=== PATIENT | female | born 1970 | race African-American/Black ===

== ENCOUNTER 2017-11-06 01:38 | Emergency (ER) | payer OTHER ==
[2017-11-06 02:10] VITALS: BMI 33.5
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
[2017-11-06] MEDS ORDERED: SODIUM CHLORIDE 0.9% 500 ML INFUS.BAG IV ONE (02:31)
[2017-11-06] MEDS ORDERED: NALOXONE HCL 0.4 MG/ML VIAL IVPUSH ONE (03:07)
[2017-11-06 03:13] LABS: BASO % 0.4 % (0-2.0); EOS % 0.2 % (0-4.5); HEMATOCRIT 32.7 % (32.4-45.2); LYMPH % 5.4 % (8-40); MCH 29.8 pg (25.7-33.7); MCHC 33.7 g/dl (32.0-36.0); MEAN CELL VOLUME 88.5 fl (80-96); MEAN PLT VOLUME 8.1 fl (7.5-11.1); MONO % 8.6 % (3.8-10.2); NEUT % 85.4 % (42.8-82.8); PLATELET COUNT 197 K/MM3 (134-434); RBC 3.69 M/mm3 (3.60-5.2); RDW 14.9 % (11.6-15.6)
[2017-11-06] MEDS ORDERED: NALOXONE HCL 0.4 MG/ML VIAL ONE ×2 (03:17→03:31)
[2017-11-06 03:44] LABS: COCAINE, UR NEGATIVE ng/ml (CUTOFF=300); METHADONE, UR NEGATIVE ng/ml (CUTOFF=300); OPIATES, URI NEGATIVE ng/ml (CUTOFF=300); PHENCYCLIDINE,URINE NEGATIVE ng/ml (CUTOFF=25); URINE AMPHETAMINES NEGATIVE ng/ml (CUTOFF=500); URINE BARBITURATES NEGATIVE ng/ml (CUTOFF=200); URINE BENZODIAZEPINES NEGATIVE ng/ml (CUTOFF=200)
[2017-11-06 03:45] LABS: ALBUMIN 3.3 g/dl (3.4-5.0); ANION GAP 8 (8-16); BILIRUBIN,TOTAL 0.2 mg/dL (0.2-1.0); BLOOD UREA NITROGEN 19 mg/dL (7-18); CALCIUM 8.3 mg/dL (8.5-10.1); CHLORIDE 107 mmol/L (98-107); CO2 26 mmol/L (21-32); CREATININE 2.1 mg/dL (0.55-1.02); GLUCOSE,RANDOM 124 mg/dL (74-106); POTASSIUM 3.7 mmol/L (3.5-5.1); SGOT/AST 37 U/L (15-37); SGPT/ALT 24 U/L (12-78); SODIUM 141 mmol/L (136-145); TOT PROT 6.5 g/dl (6.4-8.2)
[2017-11-06 03:46] LABS: ALK PHOS 52 U/L (45-117)
[2017-11-06 03:49] LABS: ACETAMINOPHEN < 2.000 ug/mL; SALICYLATE 5.573 mg/dL
[2017-11-06 06:23] VITALS: PULSE 78
[2017-11-06 08:28] LABS: ANION GAP 4 (8-16); BLOOD UREA NITROGEN 20 mg/dL (7-18); CALCIUM 8.2 mg/dL (8.5-10.1); CHLORIDE 109 mmol/L (98-107); CO2 29 mmol/L (21-32); CREATININE 1.6 mg/dL (0.55-1.02); GLUCOSE,RANDOM 83 mg/dL (74-106); POTASSIUM 3.8 mmol/L (3.5-5.1); SODIUM 142 mmol/L (136-145)
--- NOTE | 2017-11-06 08:58 | PDOC ---
*Physical Exam - Vital Signs Last Vital Signs Temp Pulse Resp BP Pulse Ox 98.7 F 78 15 130/80 99 11/06/17 03:45 11/06/17 06:23 11/06/17 06:23 11/06/17 06:23 11/06/17 07:15 ED Treatment Course - LABORATORY CBC & Chemistry Diagram: 11/06/17 03:03 11/06/17 07:51 - ADDITIONAL ORDERS Additional order review: Laboratory Results 11/06/17 11/06/17 11/06/17 07:51 03:20 03:03 WBC RBC Hgb Hct MCV MCH MCHC RDW Plt Count MPV Neutrophils % Lymphocytes % Monocytes % Eosinophils % Basophils % Sodium 142 141 Potassium 3.8 3.7 Chloride 109 H 107 Carbon Dioxide 29 26 Anion Gap 4 L 8 BUN 20 H 19 H Creatinine 1.6 H 2.1 H Creat Clearance w eGFR 25.35 Random Glucose 83 124 H Calcium 8.2 L 8.3 L Total Bilirubin 0.2 D AST 37 ALT 24 Alkaline Phosphatase 52 Total Protein 6.5 Albumin 3.3 L Beta HCG, Quant Salicylates Opiates Screen Negative Methadone Screen Negative Acetaminophen Barbiturate Screen Negative Phencyclidine Screen Negative Ur Amphetamines Screen Negative MDMA (Ecstasy) Screen Negative Benzodiazepines Screen Negative Cocaine Screen Negative U Marijuana (THC) Screen Positive Alcohol, Quantitative 11/06/17 11/06/17 03:03 03:03 WBC 12.0 H D RBC 3.69 Hgb 11.0 D Hct 32.7 MCV 88.5 MCH 29.8 MCHC 33.7 RDW 14.9 Plt Count 197 MPV 8.1 Neutrophils % 85.4 H Lymphocytes % 5.4 L D Monocytes % 8.6 D Eosinophils % 0.2 D Basophils % 0.4 Sodium Potassium Chloride Carbon Dioxide Anion Gap BUN Creatinine Creat Clearance w eGFR Random Glucose Calcium Total Bilirubin AST ALT Alkaline Phosphatase Total Protein Albumin Beta HCG, Quant < 1.0 Salicylates 5.573 Opiates Screen Methadone Screen Acetaminophen < 2.000 Barbiturate Screen Phencyclidine Screen Ur Amphetamines Screen MDMA (Ecstasy) Screen Benzodiazepines Screen Cocaine Screen U Marijuana (THC) Screen Alcohol, Quantitative < 5.0 11/06/17 03:03 RBC 3.69 MCV 88.5 MCHC 33.7 RDW 14.9 MPV 8.1 Neutrophils % 85.4 H Lymphocytes % 5.4 L D Monocytes % 8.6 D Eosinophils % 0.2 D Basophils % 0.4 - Medications Given in the ED: ED Medications Discontinued Medications Generic Name Dose Route Start Last Admin Trade Name Geovany PRN Reason Stop Dose Admin Naloxone HCl 0.8 mg 11/06/17 03:07 11/06/17 03:08 Narcan - IVPUSH 11/06/17 03:08 0.8 mg ONCE ONE Administration Sodium Chloride 1,000 ml 11/06/17 02:31 11/06/17 03:08 Normal Saline - IV 11/06/17 02:32 1,000 ml ONCE ONE Administration Medical Decision Making - Medical Decision Making 11/06/17 08:57 I received this patient on sign out at 7 am She was brought in to the ER for evaluation of alterations in mental status Overnight she was given Narcan 0.8mg total with a reported improvement in her blood pressure She was given 2 L NS Plan was to consult psychiatry as pt has a history of depression She voices no suicidal or homicidal ideation to me Pt does not admit to overdosing to me 11/06/17 08:59 Laboratory Tests 11/16/15 11/06/17 11/06/17 18:00 03:03 07:51 BUN 11 19 H 20 H Creatinine 1.1 H 2.1 H 1.6 H Renal insufficiency improved with hydration Awaiting call back from Dr Galvez 11/06/17 09:26 Pt upon re assessment states she did not intend to harm herself She took her standard medications last night and snorted heroin prior to going to bed Upon re assessment, pt BP 89/[address] Gill for admission UA negative Head CT negative CXR negative Repeat blood pressure 101/70 Pt ambulatory to my desk She states that she has already called her to bring her home Pt does not want to stay in the hospital Pt asked to hold Lisinopril Clinical impression: Heroin use, initial presentation renal insufficiency, initial presentation Dehydration, initial presentation *DC/Admit/Observation/Transfer Diagnosis at time of Disposition: Renal insufficiency, Dehydration, Heroin abuse - Discharge Dispostion Disposition: HOME Condition at time of disposition: Stable Admit: No - Referrals Referrals: ON STAFF,NOT [Primary Care Provider] - - Patient Instructions Printed Discharge Instructions: DI for Dehydration -- Adult, Kidney Failure Additional Instructions: PLEASE DO NOT TAKE YOUR BLOOD PRESSURE MEDICATION TODAY PLEASE TAKE YOUR PSYCHIATRIC MEDICATIONS PRESCRIBED RETURN TO THE ER FOR ANY OTHER CONCERNS OR COMPLAINTS - Post Discharge Activity
[2017-11-06] MEDS ORDERED: SODIUM CHLORIDE 1,000 ML IV STA (09:25)
[2017-11-06 09:35] VITALS: TEMP 98
[2017-11-06 11:01] VITALS: BP 111/62
--- NOTE | 2017-11-06 11:05 | EKG ---
Test Reason : Blood Pressure : / mmHG Vent. Rate : 079 BPM Atrial Rate : 079 BPM P-R Int : 148 ms QRS Dur : 086 ms QT Int : 540 ms P-R-T Axes : 065 067 -52 degrees QTc Int : 619 ms NORMAL SINUS RHYTHM T WAVE ABNORMALITY, CONSIDER INFERIOR ISCHEMIA T WAVE ABNORMALITY, CONSIDER ANTEROLATERAL ISCHEMIA PROLONGED QT ABNORMAL ECG NO PREVIOUS ECGS AVAILABLE Confirmed by KARLA MURILLO MD ([id number]) on 11/06/2017 11:04:48 AM Referred By: Confirmed By:KARLA MURILLO MD
== END 2017-11-06 11:00 | disposition home or self-care (01) ==
LOC: SUPCPDRO 01:38 → JER 01:38
PROC: 3E033GC Introduction of Other Therapeutic Substance into Peripheral Vein, Percutaneous Approach (ICD-10-PCS; principal; 2017-11-06)
DX: F11.10 Opioid abuse, uncomplicated (principal); E86.0 Dehydration; N28.9 Disorder of kidney and ureter, unspecified; F17.210 Nicotine dependence, cigarettes, uncomplicated; I10 Essential (primary) hypertension; F32.9 Major depressive disorder, single episode, unspecified
CPT/HCPCS: 36415; 70450-TC; 71045-TC-FY; 80048; 80053; 80307; 84702; 85025; 93005; 93010; 96374; 99285-25

== ENCOUNTER 2018-07-30 11:29 | Inpatient (IN) | payer OTHER ==
[2018-07-30 12:13] VITALS: BMI 26.1
--- NOTE | 2018-07-30 14:25 | HP ---
COWS - Scale Resting Pulse: 0= MD 80 or Below Sweatin= Chills/Flushing Restless Observation: 1= Difficult to Sit Still Pupil Size: 0= Normal to Room Light Bone or Joint Aches: 2= Severe Diffuse Aches Runny Nose/ Eye Tearin= Runny Nose/Eyes GI Upset > 30mins: 3= Vomiting/Diarrhea Tremor Observation: 1= Tremor [place], Not Seen Yawning Observation: 1= 1-2x During Session Anxiety or Irritability: 1=Feels Anxious/Irritable Goose Flesh Skin: 3=Piloerection COWS Score: 15 CIWA Score - Admission Criteria [facility] Guidelines: Admission for Medically Managed Detox: Requires at least one of the followin. CIWA greater than 12 2. Seizures within the past 24 hours 3. Delirium tremens within the past 24 hours 4. Hallucinations within the past 24 hours 5. Acute intervention needed for co occurring medical disorder 6. Acute intervention needed for co occurring psychiatric disorder 7. Severe withdrawal that cannot be handled at a lower level of care (continued vomiting, continued diarrhea, abnormal vital signs) requiring intravenous medication and/or fluids 8. Admission ROS [facility] - [facility] Chief Complaint: WITHDRAWAL SYMPTOMS Allergies/Adverse Reactions: Allergies Allergy/AdvReac Type Severity Reaction Status Date / Time No Known Drug Allergies Allergy Verified 07/30/18 15:07 History of Present Illness: 48 Y.O. WOMAN WITH A HISTORY OF HEROIN AND COCAINE DEPENDENCE IS HERE SEEKING HER FIRST ADMISSION TO DETOX. Exam Limitations: No Limitations - Ebola screening Have you traveled outside of the country in the last 21 days: No Have you had contact with anyone from an Ebola affected area: No Have you been sick,other than usual withdrawal symptoms: No Do you have a fever: No - Review of Systems Constitutional: Loss of Appetite, Unintentional Wgt. Loss EENT: reports: Blurred Vision, Tearing, Nose Congestion Respiratory: reports: Cough Cardiac: reports: Lightheadedness GI: reports: Nausea, Abdominal cramping : reports: No Symptoms Reported Musculoskeletal: reports: Back Pain Integumentary: reports: No Symptoms Reported Neuro: reports: Headache Endocrine: reports: No Symptoms Reported Hematology: reports: Anemia Psychiatric: reports: Orientated x3, Anxious Other Systems: Reviewed and Negative Patient History - Patient Medical History Hx Anemia: Yes ( A CHILD) Hx Asthma: No Hx Chronic Obstructive Pulmonary Disease (COPD): No Hx Cancer: No Hx Cardiac Disorders: No Hx Congestive Heart Failure: No Hx Hypertension: Yes Hx Hypercholesterolemia: No Hx Pacemaker: No HX Cerebrovascular Accident: No Hx Seizures: No Hx Dementia: No Hx Diabetes: No Hx Gastrointestinal Disorders: No Hx Liver Disease: No Hx Genitourinary Disorders: No Hx Renal Disease (ESRD): No Hx Thyroid Disease: No Hx Human Immunodeficiency Virus (HIV): No Hx Hepatitis C: No Hx Depression: No Hx Suicide Attempt: No Hx Bipolar Disorder: No Hx Schizophrenia: Yes (PARANOID SCHIZOPHRENIA ) - Patient Surgical History Past Surgical History: Yes Hx Neurologic Surgery: No Hx Cataract Extraction: No Hx Cardiac Surgery: No Hx Lung Surgery: No Hx Breast Surgery: No Hx Breast Biopsy: No Hx Abdominal Surgery: No Hx Appendectomy: No Hx Cholecystectomy: Yes Hx Genitourinary Surgery: No Hx Section: Yes (X2) Hx Orthopedic Surgery: No Hx Hysterectomy: No Anesthesia Reaction: No - PPD History Previous Implant?: Yes Documented Results: Positive w/o proof Results: NEEDS CXR PPD to be Administered?: No - Reproductive History Patient is a Female of Child Bearing Age (11 -55 yrs old): Yes Last Menstrual Period: 06/30/18 Patient : No - Smoking Cessation Smoking history: Current every day smoker Have you smoked in the past 12 months: No Aproximately how many cigarettes per day: 10 Hx Chewing Tobacco Use: No Initiated information on smoking cessation: Yes 'Breaking Loose' booklet given: 07/30/18 - Substance & Tx. History Hx Alcohol Use: No Hx Substance Use: Yes Substance Use Type: Cocaine, Heroin Hx Substance Use Treatment: No - Substances Abused Heroin Route: Inhalation Frequency: Daily Amount used: 1 GRAM Age of first use: 48 Date of Last Use: 07/29/18 Cocaine Route: Smoking Frequency: 1-3 times last 30 days Amount used: $50 Age of first use: 48 Date of Last Use: 07/29/18 Family Disease History - Family Disease History Family Disease History: Diabetes: Father (HEROIN DEPENDENCE- ) Admission Physical Exam [facility] - Vital Signs Vital Signs: Vital Signs - 24 hr 07/30/18 12:11 Temperature 98.9 F Pulse Rate 67 Respiratory 17 Rate Blood Pressure 146/103 H - Physical General Appearance: Yes: Tremorous, Irritable, Sweating, Anxious HEENTM: Yes: Hearing grossly Normal, Normocephalic, Normal Voice Respiratory: Yes: Chest Non-Tender, Lungs Clear, Normal Breath Sounds, No Respiratory Distress, No Accessory Muscle Use Neck: Yes: No masses,lesions,Nodules Breast: Yes: Breast Exam Deferred Cardiology: Yes: Regular Rhythm, Regular Rate Abdominal: Yes: Normal Bowel Sounds, Non Tender, Flat, Soft Genitourinary: Yes: Other (NO COMPLAINTS REPORTED) Back: Yes: Other Musculoskeletal: Yes: Back pain Extremities: Yes: Normal Inspection, Normal Range of Motion, Non-Tender Neurological: Yes: Alert, Normal Mood/Affect, Normal Response Integumentary: Yes: Normal Color, Dry, Warm Lymphatic: Yes: Within Normal Limits - Diagnostic (1) Opioid dependence with withdrawal Status: Acute (2) Cocaine dependence Status: Chronic (3) Nicotine dependence Status: Chronic (4) Asthma Status: Chronic (5) Sleep apnea Status: Chronic (6) Hypertension Status: Chronic (7) History of TB (tuberculosis) Status: Acute Cleared for Admission [facility] - Detox or Rehab [facility] Level of Care: Medically Managed Detox Regimen/Protocol: Methadone [facility] Breath Alcohol Content Breath Alcohol Content: 0 Urine Pregancy Test - Result Urine Test Results: Negative- NO Line Present Urine Drug Screen - Results Drug Screen Negative: No Urine Drug Screen Results: [place]-Cocaine, OPI-Opiates, BZO-Benzodiazepines
[2018-07-30] MEDS ORDERED: MAGNESIUM CITRATE 300 ML BOTTLE PO PRN (14:42)
[2018-07-30] MEDS ORDERED: MAGNESIUM HYDROX 2400MG/30ML ORAL SUSPENSION 30 ML CUP PO PRN (14:42)
[2018-07-30] MEDS ORDERED: P-EPHED 60MG/TRIPROLIDI 2.5MG TABLET PO PRN (14:42)
[2018-07-30] MEDS ORDERED: MAG HYDROX/AL HYDROX/SIMETH 30 ML UNIT-DOSE CUP PO PRN (14:42)
[2018-07-30] MEDS ORDERED: MENTHOL/PHENOL 1 EACH UD MM PRN (14:42)
[2018-07-30] MEDS ORDERED: IBUPROFEN 400 MG TABLET (FP) PO PRN (14:42)
[2018-07-30] MEDS ORDERED: guaiFENesin/D-METHORPHAN HB 10 ML UNIT-DOSE CUPS PO PRN (14:42)
[2018-07-30] MEDS ORDERED: NICOTINE POLACRILEX 2 MG GUM BC PRN (14:42)
[2018-07-30] MEDS ORDERED: ACETAMINOPHEN 325 MG TABLET (FP) PO PRN (14:42)
[2018-07-30] MEDS ORDERED: hydrOXYzine PAMOATE 50 MG CAPSULE (FP) PO PRN (14:42)
[2018-07-30] MEDS ORDERED: LOPERAMIDE HCL 2 MG CAPSULE PO PRN (14:42)
[2018-07-30] MEDS ORDERED: ALBUTEROL SO4 8 GM HFA INHALER IH PRN (15:21)
[2018-07-30] MEDS ORDERED: METHADONE HCL 10 MG TABLET (FOR DETOX USE ONLY) PO ONE ×2 (17:00→23:00)
--- NOTE | 2018-07-30 17:04 | PN ---
[facility] Progress Note Note: Pt just got to the floor. BP noted to be 189/100> clonidine 0.1mg given now. f/ u BP and give additional meds if needed
[2018-07-30] MEDS ORDERED: cloNIDine HCL 0.1 MG TABLET PO ONE (17:15)
--- NOTE | 2018-07-30 17:36 | PN ---
[facility] Progress Note Note: Psychiatric nurse practitioner note: Called received by RN Leslie Serrano requesting patient's psychotrophic medications of geodon 80mg BID and Trazodone 100mg HS. Patient has current EKG pending. Most recent EKG for november 06, 2017 shows prolong QT: QT/QTC 540/619. Will not order Medications at this time.
--- NOTE | 2018-07-30 19:38 | PN ---
[facility] Progress Note Note: Patient called home and states patient is on Losartan 50/12.5 mg daily. Pharmacy is [facility] in [place] ([phone]) but is closed at this time. Will start in am and cover elevated B/P tonight w/ CloNidine, as needed.
--- NOTE | 2018-07-30 19:43 | PN ---
[facility] Progress Note Note: Psychiatric nurse practitioer note: As per ROSA Osuna patient's EKG today (07/30/18): Qt/Qtc - 494/484. Chart reviewed. Will order Trazodone 100mg qhs. [facility]etr[facility] Steward to see patient for Psychiatric consultation tomorrow morning.
[2018-07-30] MEDS ORDERED: MELATONIN 5 MG TABLETS PO PRN (22:00)
[2018-07-30] MEDS: THIAMINE HCL 100 MG TABLET (FP) PO SCH (22:27)
[2018-07-30] MEDS: traZODone HCL 100 MG TABLET (FP) PO SCH (22:27)
[2018-07-30] MEDS: diazePAM 5 MG TABLET PO PRN (22:27)
[2018-07-30] MEDS: rOPINIRole HCL 0.25 MG TABLET PO SCH (22:44)
--- NOTE | 2018-07-31 09:05 | CONSULT ---
[facility] Psychiatric Consult - Data Date of interview: 07/31/18 Admission source: [facility] Identifying data: Patient is a 48 year old single female, mother of three, unemployed, domiciled, and is [facility]. This is patient's first admission to detox at [facility]. Patient admitted to for opiate dependence. Substance Abuse History: Smoking Cessation. Smoking history: Current every day smoker. Have you smoked in the past 12 months: No. Aproximately how many cigarettes per day: 10. Hx Chewing Tobacco Use: No. Initiated information on smoking cessation: Yes. 'Breaking Loose' booklet given: 07/30/18. - Substance & Tx. History. Hx Alcohol Use: No. Hx Substance Use: Yes. Substance Use Type : Cocaine, Heroin. Hx Substance Use Treatment: No. - Substances Abused. Heroin. Route: Inhalation. Frequency: Daily. Amount used: 1 GRAM. Age of first use: 48. Date of Last Use: 07/29/18. Cocaine. Route: Smoking. Frequency: 1-3 times last 30 days. Amount used: $50. Age of first use: 48. Date of Last Use: 07/29/18 Medical History: Anemia Psychiatric History: Patient's first psychiatric contact was at 17 years of age after experiencing depression. She was admitted to [facility] psychiatric facility started on psychotropic medications and diagnosed with paranoid schizophrenia. She reports an extensive history of psychiatric hospitalizations secondary to suicide attempts, auditory hallucinations, and paranoid ideations. Patient is known to [facility], [facility], [facility], [facility], and [facility]. Most recent psychiatric hospitalization was in 2003 after her father and patient endorsed suicidal ideation. Outpatient psychiatric care is provided by Dr. Solomon at [facility]. She is prescribed Geodon 80mg BID + Traozdone 200mg HS + Klonopin 0.5 BID. Diagnosis of paranoid Schizophrenia. Laurence reports h/o four suicide attempts by overdose , drinking bleach, and [place] [facility] [address] At present, patient denies psychotic symptoms and denies thougts or urges to hurt self or others. Physical/Sexual Abuse/Trauma History: denies. Mental Status Exam - Mental Status Exam Alert and Oriented to: Time, Place, Person Cognitive Function: Good Patient Appearance: Unkempt Mood: Euthymic Affect: Appropriate Patient Behavior: Appropriate, Cooperative Speech Pattern: Clear, Appropriate Voice Loudness: Normal Thought Process: Intact, Goal Oriented Thought Disorder: Not Present Hallucinations: Denies Suicidal Ideation: Denies Homicidal Ideation: Denies Insight/Judgement: Poor Sleep: Fair Appetite: Fair Muscle strength/Tone: Normal Gait/Station: Normal Psychiatric Findings - Problem List ([place] 1, 2,3) (1) Schizophrenia Current Visit: Yes Status: Chronic (2) Cocaine dependence Current Visit: Yes Status: Chronic (3) Nicotine dependence Current Visit: Yes Status: Chronic (4) Opioid dependence with withdrawal Current Visit: Yes Status: Acute - Initial Treatment Plan Initial Treatment Plan: Psychoeducation provided. Detoxification in progress. Will order Geodon 80mg BID. Trazodone 100mg HS ordered last night. Benefits and side effects discussed. Verbal consent given.
[2018-07-31] MEDS: LOSARTAN 50MG/HCTZ 12.5MG 1 TAB (FP) PO SCH (09:41)
[2018-07-31] MEDS: cloNIDine HCL 0.1 MG TABLET PO SCH ×2 (09:59→22:06)
[2018-07-31] MEDS ORDERED: cloNIDine HCL 0.1 MG TABLET PO SCH (10:00)
[2018-07-31] MEDS ORDERED: METHADONE HCL 10 MG TABLET (FOR DETOX USE ONLY) PO ONE (10:00)
[2018-07-31] MEDS: PRENATAL VITAMINS W/ FOLIC ACID TABLET (FP) PO SCH (11:04)
[2018-07-31] MEDS: NICOTINE 14 MG/24 HOURS TOPICAL PATCH TD SCH (11:04)
[2018-07-31] MEDS: ZIPRASIDONE 40 MG CAPSULE (FP) PO SCH ×2 (11:06→22:06)
[2018-07-31 11:39] LABS: ALBUMIN 3.3 g/dl (3.4-5.0); ALK PHOS 62 U/L (45-117); ANION GAP 4 MMOL/L (8-16); BILIRUBIN,TOTAL 0.3 mg/dL (0.2-1); BLOOD UREA NITROGEN 18 mg/dL (7-18); CALCIUM 9.1 mg/dL (8.5-10.1); CHLORIDE 102 mmol/L (98-107); CO2 33 mmol/L (21-32); CREATININE 1.2 mg/dL (0.55-1.3); GLUCOSE,RANDOM 110 mg/dL (74-106); POTASSIUM 3.6 mmol/L (3.5-5.1); SGOT/AST 30 U/L (15-37); SGPT/ALT 24 U/L (13-61); SODIUM 140 mmol/L (136-145); TOT PROT 6.7 g/dl (6.4-8.2)
[2018-07-31 11:51] LABS: HEMATOCRIT 32.8 % (32.4-45.2); MCH 29.5 pg (25.7-33.7); MCHC 33.5 g/dl (32.0-36.0); MEAN CELL VOLUME 88.1 fl (80-96); MEAN PLT VOLUME 8.3 fl (7.5-11.1); PLATELET COUNT 251 K/MM3 (134-434); RBC 3.72 M/mm3 (3.60-5.2); RDW 15.5 % (11.6-15.6); WHITE BLOOD COUNT 6.1 K/mm3 (4.0-10.0)
[2018-07-31] MEDS ORDERED: FLU VACCINE QUAD 60 MCG/0.5 ML (MDV 18-19) IM ONE (12:00)
--- NOTE | 2018-07-31 12:43 | PN ---
[facility] COWS - Scale Resting Pulse: 0= NM 80 or Below Sweatin=Flushed/Facial Moisture Restless Observation: 1= Difficult to Sit Still Pupil Size: 0= Normal to Room Light Bone or Joint Aches: 2= Severe Diffuse Aches Runny Nose/ Eye Tearin= Runny Nose/Eyes GI Upset > 30mins: 1= Stomach Cramp Tremor Observation of Outstretched Hands: 2= Slight Tremor Visible Yawning Observation: 2= >3x During Session Anxiety or Irritability: 1=Feels Anxious/Irritable Goose Flesh Skin: 0=Smooth Skin COWS Score: 13 BHS Progress Note (SOAP) Subjective: sweats shakes interrupted sleep body aches agitation Objective: 07/31/18 12:42 Vital Signs Temperature 98.2 F 07/31/18 09:25 Pulse Rate 65 07/31/18 09:25 Respiratory Rate 20 07/31/18 09:25 Blood Pressure 162/110 H 07/31/18 09:25 O2 Sat by Pulse Oximetry (%) Laboratory Tests 07/31/18 07/31/18 07/31/18 05:45 05:45 05:45 WBC 6.1 RBC 3.72 Hgb 11.0 Hct 32.8 MCV 88.1 MCH 29.5 MCHC 33.5 RDW 15.5 Plt Count 251 D MPV 8.3 Sodium 140 Potassium 3.6 Chloride 102 Carbon Dioxide 33 H Anion Gap 4 L BUN 18 Creatinine 1.2 Creat Clearance w eGFR 48.15 Random Glucose 110 H Calcium 9.1 Total Bilirubin 0.3 AST 30 ALT 24 Alkaline Phosphatase 62 Total Protein 6.7 Albumin 3.3 L RPR Titer Nonreactive aaox3 ambulating no acute distress Assessment: 07/31/18 12:42 withdrawal sx Plan: continue detox increase fluids monitor BP
--- NOTE | 2018-07-31 18:19 | EKG ---
Test Reason : Blood Pressure : / mmHG Vent. Rate : 058 BPM Atrial Rate : 058 BPM P-R Int : 156 ms QRS Dur : 086 ms QT Int : 494 ms P-R-T Axes : 050 062 073 degrees QTc Int : 484 ms SINUS BRADYCARDIA POSSIBLE LEFT ATRIAL ENLARGEMENT LEFT VENTRICULAR HYPERTROPHY T WAVE ABNORMALITY, CONSIDER ANTEROLATERAL ISCHEMIA PROLONGED QT ABNORMAL ECG Confirmed by MD MICHELA, KAYLA ([id number]) on 07/31/2018 6:18:56 PM Referred By: Confirmed By:KAYLA ABERNATHY MD
[2018-07-31] MEDS ORDERED: COLLOIDAL OATMEAL 1 BAR EACH TP PRN (21:49)
[2018-07-31] MEDS: diazePAM 5 MG TABLET PO PRN (22:05)
[2018-07-31] MEDS: THIAMINE HCL 100 MG TABLET (FP) PO SCH (22:05)
[2018-07-31] MEDS: traZODone HCL 100 MG TABLET (FP) PO SCH (22:06)
[2018-07-31] MEDS: rOPINIRole HCL 0.25 MG TABLET PO SCH (22:06)
[2018-08-01] MEDS ORDERED: cloNIDine HCL 0.1 MG TABLET PO ONE (07:26)
--- NOTE | 2018-08-01 07:31 | PN ---
B[facility] Progress Note Note: Patient's blood pressure is B/P 151/105. Patient is asymptomatic Temperature 98.2 F 08/02/18 07:16 Pulse Rate 45 L 08/01/18 07:16 Respiratory Rate 18 08/01/18 07:16 Blood Pressure 151/105 08/01/18 07:16 O2 Sat by Pulse Oximetry (%) Action: Clonidine 0.1mg tablet oral ordered
[2018-08-01] MEDS ORDERED: METHADONE HCL 5 MG TABLET (FOR DETOX USE ONLY) PO ONE (10:00)
[2018-08-01] MEDS: ZIPRASIDONE 40 MG CAPSULE (FP) PO SCH (10:10)
[2018-08-01] MEDS: LOSARTAN 50MG/HCTZ 12.5MG 1 TAB (FP) PO SCH (10:10)
[2018-08-01] MEDS: cloNIDine HCL 0.1 MG TABLET PO SCH (10:10)
[2018-08-01] MEDS: NICOTINE 14 MG/24 HOURS TOPICAL PATCH TD SCH (10:11)
[2018-08-01] MEDS: PRENATAL VITAMINS W/ FOLIC ACID TABLET (FP) PO SCH (10:11)
[2018-08-01 13:56] VITALS: BP 151/91; PULSE 53; TEMP 98.2
--- NOTE | 2018-08-01 14:01 | PN ---
B[facility] COWS - Scale Resting Pulse: 0= NM 80 or Below Sweatin=Flushed/Facial Moisture Restless Observation: 1= Difficult to Sit Still Pupil Size: 0= Normal to Room Light Bone or Joint Aches: 1= Mild Discomfort Runny Nose/ Eye Tearin= Nasal Congestion GI Upset > 30mins: 0= None Tremor Observation of Outstretched Hands: 2= Slight Tremor Visible Yawning Observation: 1= 1-2x During Session Anxiety or Irritability: 2=Irritable/Anxious Goose Flesh Skin: 0=Smooth Skin COWS Score: 10 BHS Progress Note (SOAP) Subjective: sweats shakes body aches Objective: 08/01/18 14:00 Vital Signs Temperature 98.2 F 08/01/18 13:56 Pulse Rate 53 L 08/01/18 13:56 Respiratory Rate 20 08/01/18 13:56 Blood Pressure 151/91 08/01/18 13:56 O2 Sat by Pulse Oximetry (%) Laboratory Tests 07/31/18 07/31/18 07/31/18 05:45 05:45 05:45 WBC 6.1 RBC 3.72 Hgb 11.0 Hct 32.8 MCV 88.1 MCH 29.5 MCHC 33.5 RDW 15.5 Plt Count 251 D MPV 8.3 Sodium 140 Potassium 3.6 Chloride 102 Carbon Dioxide 33 H Anion Gap 4 L BUN 18 Creatinine 1.2 Creat Clearance w eGFR 48.15 Random Glucose 110 H Calcium 9.1 Total Bilirubin 0.3 AST 30 ALT 24 Alkaline Phosphatase 62 Total Protein 6.7 Albumin 3.3 L RPR Titer Nonreactive aaox3 ambulating no acute distress Assessment: 08/01/18 14:00 withdrawal sx Plan: continue detox increase fluids
--- NOTE | 2018-08-01 17:44 | DS ---
[facility] Detox Discharge Summary Admission Date: 07/30/18 Discharge Date: 08/01/18 - History Present History: Cocaine Dependence, Opioid Dependence - Physical Exam Results Vital Signs: Vital Signs Temperature 98.2 F 08/01/18 13:56 Pulse Rate 53 L 08/01/18 13:56 Respiratory Rate 20 08/01/18 13:56 Blood Pressure 151/91 08/01/18 13:56 O2 Sat by Pulse Oximetry (%) - Treatment Hospital Course: Detox Protocol Followed - Medication Discharge Medications: Ambulatory Orders Ziprasidone HCl [Geodon] 80 mg PO BID 11/06/15 traZODone HCL [Desyrel -] 200 mg PO HS 11/06/15 Albuterol Sulfate Inhaler - [Ventolin Hfa Inhaler -] 2 inh PO Q4H PRN 07/30/18 Losartan 50Mg/Hctz 12.5MG [Hyzaar -] 1 tab PO DAILY 07/30/18 Ropinirole HCl [Requip -] 0.25 mg PO HS 07/30/18 - AMA Did Patient Leave Against Medical Advice: Yes (Pt signed out AMA , states she must go home.)
[2018-08-02] MEDS ORDERED: METHADONE HCL 5 MG TABLET (FOR DETOX USE ONLY) PO ONE (10:00)
[2018-08-03] MEDS ORDERED: METHADONE HCL 10 MG TABLET (FOR DETOX USE ONLY) PO ONE (10:00)
[2018-08-04] MEDS ORDERED: METHADONE HCL 5 MG TABLET (FOR DETOX USE ONLY) PO ONE (06:00)
== END 2018-08-01 18:20 | disposition home or self-care (01) | DRG 773 ==
LOC: YASAS 11:29 → Y6N 15:53
PROVIDERS: ADMIT Neuromusculoskeletal Medicine & OMM; ATTEND Neuromusculoskeletal Medicine & OMM
PROC: HZ2ZZZZ Detoxification Services for Substance Abuse Treatment (ICD-10-PCS; principal; 2018-07-30)
DX: F11.23 Opioid dependence with withdrawal (principal); F14.20 Cocaine dependence, uncomplicated; F17.210 Nicotine dependence, cigarettes, uncomplicated; F20.0 Paranoid schizophrenia; I10 Essential (primary) hypertension; J45.909 Unspecified asthma, uncomplicated; G47.30 Sleep apnea, unspecified; Z86.2 Personal history of diseases of the blood and blood-forming organs and certain disorders involving the immune mechanism; Z91.5 Personal history of self-harm; Z86.11 Personal history of tuberculosis
CPT/HCPCS: 36415; 71046-TC-FY; 80053; 85027; 86593; 90688; 93005; 93010; G0008; J0735